=== PATIENT | male | born 1945 | race Caucasian/White ===

== ENCOUNTER → 2018-10-09 11:30 | Outpatient (CLI) | payer MEDICARE, OTHER, SELFPAY ==
--- NOTE | 2018-10-09 | DI.MRI.S_ITS ---
PROCEDURE: MR LUMBAR SPINE WO CON INDICATIONS: LUMBAR RADICULOPATHY TECHNIQUE: Noncontrast sagittal T1 spin echo and T2 fast echo, sagittal STIR, axial T1 and T2 fast spin echo through the lumbar spine. In cases with scoliosis, additional coronal T2 fast spin echo may be performed. COMPARISON: None. FINDINGS: Image quality: Excellent. Alignment and Curvature: Trace anterolisthesis of L3 on L4. Bone Marrow: Marrow is of normal overall signal. Chronic appearing L5 left pars defect. Possible right L5 pars defect on image 5 series 3 although quite subtle in appearance. No acute vertebral body compression fractures. Spinal Cord: Conus medullaris terminates at the L1 level. Visualized cord demonstrates normal signal and size. Paraspinous Soft Tissues: T2 hyperintense presumed right renal cysts although technically nonspecific L1-L2: Normal appearance. L2-L3: Mild broad-based posterior disc bulge and bilateral facet arthropathy. No definite canal stenosis. Lateral recess appear grossly patent. No foraminal stenosis. L3-L4: Broad-based posterior disc bulge mild facet arthropathy. Mild canal narrowing. There is ligamentum flavum hypertrophy. Moderate partial effacement of both lateral recesses although this is symmetric in nature. Mild bilateral foraminal narrowing L4-L5: Broad-based posterior disc bulge and bilateral facet arthropathy. Ligamentum flavum hypertrophy. There is dorsal epidural lipomatosis. Mild central canal narrowing. There is moderate to severe subarticular narrowing although symmetric in appearance. No definite foraminal stenosis L5-S1: Broad-based posterior disc bulge and bilateral facet arthropathy. No central canal or lateral recess narrowing. Mild bilateral foraminal narrowing IMPRESSION: Bilateral chronic, subtle L5 pars defects. Mild L3-L4 and L4-L5 canal narrowing. Moderate to severe bilateral L4-L5 subarticular narrowing although symmetric in appearance. Moderate narrowing of the L3-L4 lateral recess is present, also symmetric. Trace anterolisthesis of L3 on L4. Dictated by: Yosi Oliver M.D. on 10/09/2018 at 13:54 Approved by: Yosi Oliver M.D. on 10/09/2018 at 14:41
== END ==
PROVIDERS: Visit Provider Physical Medicine & Rehabilitation
DX: M48.061 Spinal stenosis, lumbar region without neurogenic claudication (principal); M48.07 Spinal stenosis, lumbosacral region; M51.16 Intervertebral disc disorders with radiculopathy, lumbar region; M51.17 Intervertebral disc disorders with radiculopathy, lumbosacral region; M47.26 Other spondylosis with radiculopathy, lumbar region; M47.27 Other spondylosis with radiculopathy, lumbosacral region
CPT/HCPCS: 72148

== ENCOUNTER → 2018-11-09 19:38 | Outpatient (REF) | payer MEDICARE, OTHER, SELFPAY ==
[2018-11-09 20:39] LABS: Add Manual Diff / Slide Review NO; Basophils Absolute Auto 0 /uL (0-100); Basophils Percent Auto 0.6 % (0-2); Eosinophils Absolute Auto 100 /uL (0-450); Eosinophils Percent Auto 1.1 % (2-4); Hematocrit 49.4 % (41-53); Hemoglobin 16.4 g/dL (13.5-17.5); Lymphocytes Absolute Auto 1100 /uL (1100-4500); Lymphocytes Percent Auto 14.6 % (25-40); Mean Corpuscular HGB Conc 33.2 % (30-36); Mean Corpuscular Hemoglobin 29.8 PG (26-34); Mean Corpuscular Volume 89.7 fL (80-100); Monocytes Absolute Auto 700 /uL (0-900); Monocytes Percent Auto 8.9 % (3-14); Neutrophils Absolute Auto 5800 /uL (1500-7000); Neutrophils Percent Auto 74.8 % (50-75); Platelet Count 178 X10^3/uL (150-400); Red Blood Cell Count 5.51 X10^6/uL (4.5-5.9); Red Cell Distribution Width 14.4 % (11.6-14.8); White Blood Cell Count 7.7 X10^3/uL (4.5-11.0)
[2018-11-09 20:43] LABS: Alanine Aminotransferase 45 IU/L (21-72); Albumin 4.4 g/dL (3.5-5.0); Albumin Globulin Ratio 1.6 (1.0-2.8); Alkaline Phosphatase 86 U/L (38-126); Aspartate Aminotransferase 33 IU/L (17-59); BUN Creatinine Ratio 23.3 (6-22); Bilirubin Total 0.8 mg/dL (0.2-1.3); Blood Urea Nitrogen 21 mg/dL (9-20); Carbon Dioxide 28 mmol/L (22-32); Chloride 103 mmol/L (98-107); Cholesterol 185 mg/dL (140-199); Estimated Glomerular Filt Rate > 60.0 mL/min (>60); Globulin 2.8 g/dL (1.7-4.1); Glucose 92 mg/dL (80-110); HDL Cholesterol 60 mg/dL (40-60); HEMOLYSIS 20 (0-50); LDL Cholesterol Calculated 108 mg/dL (<100); Potassium 3.7 mmol/L (3.4-5.1); Sodium 141 mmol/L (137-145); Total Protein 7.2 g/dL (6.3-8.2); Triglycerides 83 mg/dL (35-150)
[2018-11-09 21:13] LABS: Prostate Specific Antigen 3.89 ng/mL (0.10-4.00)
== END ==
LOC: LAB 19:38
PROVIDERS: Visit Provider Family Medicine Geriatric Medicine
DX: I10 Essential (primary) hypertension (principal); E78.2 Mixed hyperlipidemia; I40.0 Infective myocarditis
CPT/HCPCS: 36415; 80053; 80061; 84153; 85025